=== PATIENT | female | born 1945 | race Two or more races ===

== ENCOUNTER 2017-08-18 07:53 | Outpatient (CLI) | payer OTHER ==
[~2017-08-18 07:53] MED LIST: CARDURA XL4 MG; COZAAR100 MG; NAMENDA10 MG; REMINYL8 MG
== END 2017-08-19 06:18 | disposition home or self-care (01) ==
LOC: MRI 07:53 → NUCLEAR 08:30 → MRI 08-19 06:18
DX: R55 Syncope and collapse (principal)
CPT/HCPCS: 70551

== ENCOUNTER 2017-10-26 07:47 | Outpatient (CLI) | payer OTHER | END 2017-10-26 07:50 | disposition home or self-care (01) | LOC: SONOGRAMA 07:47 → MAMO-SONO 08:15 | DX: N39.3 Stress incontinence (female) (male) (principal) ==

== ENCOUNTER → 2018-04-25 | Emergency (ER) | payer OTHER ==
[~2018-04-25] VITALS: Ht 165.1 cm; Wt 77.1 kg
== END | disposition home or self-care (01) ==
LOC: ER 10:09
DX: S90.32XA Contusion of left foot, initial encounter (principal); S80.01XA Contusion of right knee, initial encounter; S82.52XK Displaced fracture of medial malleolus of left tibia, subsequent encounter for closed fracture with nonunion; W01.0XXA Fall on same level from slipping, tripping and stumbling without subsequent striking against object, initial encounter; Y93.89 Activity, other specified; Y92.098 Other place in other non-institutional residence as the place of occurrence of the external cause; Y99.8 Other external cause status

== ENCOUNTER 2020-04-29 14:30 | Outpatient (CLI) | payer OTHER | END 2020-04-29 15:19 | disposition home or self-care (01) | LOC: RAD 14:30 | PROVIDERS: ATTEND Ophthalmology | DX: I10 Essential (primary) hypertension (principal); Z01.811 Encounter for preprocedural respiratory examination ==

== ENCOUNTER 2022-06-02 07:12 | Outpatient (CLI) | payer OTHER | END 2022-06-02 07:13 | disposition home or self-care (01) | LOC: NUCLEAR 07:12 | PROVIDERS: ATTEND Internal Medicine Gastroenterology | DX: K31.84 Gastroparesis (principal) | CPT/HCPCS: 78264; A9541 ==

== ENCOUNTER 2024-01-30 08:40 | Outpatient (CLI) | payer OTHER | END 2024-01-30 08:44 | disposition home or self-care (01) | LOC: SONOGRAMA 08:40 | PROVIDERS: ATTEND Pathology Anatomic Pathology & Clinical Pathology | DX: D34 Benign neoplasm of thyroid gland (principal); E07.89 Other specified disorders of thyroid; E04.2 Nontoxic multinodular goiter ==

== ENCOUNTER 2024-07-06 07:13 | Outpatient (CLI) | payer OTHER | END 2024-07-06 07:14 | disposition home or self-care (01) | LOC: NUCLEAR 07:13 | PROVIDERS: ATTEND Internal Medicine | DX: I20.9 Angina pectoris, unspecified (principal) ==